=== PATIENT | female | born 1995 | race Caucasian/White ===

== ENCOUNTER 2020-05-08 12:36 | Outpatient (CLI) | payer MEDICAID ==
[~2020-05-08] VITALS: Ht 172.7 cm; Wt 99.1 kg
[2020-05-08 12:38] VITALS: BP 118/79
== END 2020-05-08 13:54 | disposition home or self-care (01) ==
LOC: LDOP 12:36
PROVIDERS: ATTEND Obstetrics & Gynecology
DX: O26.893 Other specified pregnancy related conditions, third trimester (principal); R10.9 Unspecified abdominal pain; Z3A.36 36 weeks gestation of pregnancy
CPT/HCPCS: 59025; 84112

== ENCOUNTER → 2020-05-18 | Outpatient (CLI) | payer MEDICAID | END | disposition home or self-care (01) | LOC: STAR 13:37 | PROVIDERS: ATTEND Obstetrics & Gynecology | DX: Z01.812 Encounter for preprocedural laboratory examination (principal); Z20.828 Contact with and (suspected) exposure to other viral communicable diseases | CPT/HCPCS: 36415; 87635 ==

== ENCOUNTER 2020-05-23 00:35 | Inpatient (IN) | payer MEDICAID ==
[~2020-05-23] VITALS: Ht 172.7 cm; Wt 99.0 kg
[2020-05-23] MEDS ORDERED: METOCLOPRAMIDE 5 MG/ML, 2ML IV ONE (05:30)
[2020-05-23] MEDS ORDERED: SODIUM CITRATE/CITRIC ACID 30 ML UDC PO ONE (05:30)
[2020-05-23] MEDS ORDERED: LACTATED RINGERS 1,000 ML IV SCH (05:30)
[2020-05-23] MEDS ORDERED: LACTATED RINGERS 1,000 ML IVBOLUS ONE (05:30)
[2020-05-23 05:38] VITALS: BP 111/73
[2020-05-23] MEDS ORDERED: PREN1TAB62 PO (05:40)
[2020-05-23] MEDS ORDERED: NEWBORN KIT ONE (05:41)
[2020-05-23] MEDS ORDERED: METOCLOPRAMIDE 5 MG/ML, 2ML ONE (05:50)
[2020-05-23] MEDS ORDERED: OXYTOCIN 30U/ 0.9% NaCL 500ML 500 ML ONE (05:50)
[2020-05-23 05:55] LABS: BASOPHILS % (AUTO) 0 % (0-1); EOSINOPHILS % (AUTO) 1 % (1-7); LYMPHOCYTES % (AUTO) 29 % (22-44); MEAN CORPUSCULAR HEMOGLOBIN 30.4 pg (27.0-34.8); MEAN CORPUSCULAR HGB CONC 33.3 g/dL (32.4-35.8); MEAN PLATELET VOLUME 9.6 fL (7.4-10.4); MONOCYTES % (AUTO) 9 % (2-9); NEUTROPHILS % (AUTO) 61 % (42-75); PLATELET COUNT 206 x10^3/uL (130-400); RED BLOOD COUNT 3.92 x10^6/uL (3.82-5.3); RED CELL DISTRIBUTION WIDTH 13.2 % (9.6-15.2)
[2020-05-23 06:10] LABS: MD NO
[2020-05-23] MEDS ORDERED: PHENYLEPHRINE 10 MG/ML ONE (07:17)
[2020-05-23] MEDS ORDERED: OXYTOCIN 10 UNITS/ML, 1ML ONE (07:17)
[2020-05-23] MEDS ORDERED: EPHEDRINE 50 MG/ML, 1ML ONE ×2 (07:17→08:03)
[2020-05-23] MEDS ORDERED: CEFAZOLIN 1,000 MG ONE (07:17)
[2020-05-23] MEDS ORDERED: FENTANYL PF 100 MCG/2ML ONE (07:17)
[2020-05-23] MEDS ORDERED: DEXAMETHASONE 4 MG/ML, 1ML ONE (07:17)
[2020-05-23] MEDS ORDERED: ONDANSETRON 2MG/ML, 2ML ONE (07:17)
[2020-05-23] MEDS ORDERED: KETOROLAC 30 MG/1 ML ONE (07:17)
[2020-05-23] MEDS ORDERED: EPHEDRINE 50 MG/ML, 1ML IVPush PRN (07:30)
[2020-05-23] MEDS ORDERED: hydrALAzine 20 MG/ML, 1ML IV PRN (07:30)
[2020-05-23] MEDS ORDERED: FENTANYL PF 100 MCG/2ML IV PRN (07:30)
[2020-05-23] MEDS ORDERED: OXYcodone 5 MG/5 ML ORAL.SOL UDC PO PRN (07:30)
[2020-05-23] MEDS ORDERED: HYDROmorphone 2 MG/ML, 1ML IVPush PRN (07:30)
[2020-05-23] MEDS ORDERED: HYDROcodone/APAP 7.5-325MG/15ML UDC PO PRN (07:30)
[2020-05-23] MEDS ORDERED: ONDANSETRON 2MG/ML, 2ML IVPush PRN (07:30)
[2020-05-23] MEDS ORDERED: PROMETHAZINE 25 MG/ML, 1ML IV PRN (07:30)
[2020-05-23] MEDS ORDERED: MIDAZOLAM 1 MG/ML, 2ML IV PRN (07:30)
[2020-05-23] MEDS ORDERED: ALBUTEROL SULFATE 2.5 MG/3 ML NPPB PRN (07:30)
[2020-05-23] MEDS ORDERED: MEPERIDINE/PF 25MG/0.5ML IVPush PRN (07:30)
[2020-05-23] MEDS ORDERED: LABETALOL 5MG/ML, 20ML IV PRN (07:30)
[2020-05-23] MEDS ORDERED: HYDROmorphone 2 MG/ML, 1ML ONE (08:18)
[2020-05-23] MEDS ORDERED: DIPH,PERTUSS(ACELL),TET VAC/PF NC IM-VACC PRN (10:00)
[2020-05-23] MEDS ORDERED: MISOPROSTOL 200 MCG TABLET PR PRN (10:00)
[2020-05-23] MEDS: LACTATED RINGERS 1,000 ML IV SCH ×4 (10:00→20:00)
[2020-05-23] MEDS ORDERED: OXYcodone/APAP 5/325MG TABLET PO PRN (10:00)
[2020-05-23] MEDS: OXYTOCIN 30U/ 0.9% NaCL 500ML 500 ML IV SCH ×2 (10:35→20:00)
[2020-05-23 11:34] VITALS: BP 107/70
[2020-05-23] MEDS: OXYcodone/APAP 5/325MG TABLET PO PRN ×3 (12:18→21:01)
[2020-05-23] MEDS: SIMETHICONE 80 MG CHEW TAB PO PRN ×2 (14:42→21:00)
[2020-05-23] MEDS: IBUPROFEN 600 MG TABLET PO PRN ×2 (14:42→21:00)
[2020-05-23 14:47] VITALS: BP 100/62
[2020-05-23 16:17] LABS: BASOPHILS % (AUTO) 0 % (0-1); EOSINOPHILS % (AUTO) 0 % (1-7); LYMPHOCYTES % (AUTO) 8 % (22-44); MEAN CORPUSCULAR HEMOGLOBIN 30.8 pg (27.0-34.8); MEAN CORPUSCULAR HGB CONC 33.4 g/dL (32.4-35.8); MEAN PLATELET VOLUME 9.6 fL (7.4-10.4); MONOCYTES % (AUTO) 6 % (2-9); NEUTROPHILS % (AUTO) 86 % (42-75); PLATELET COUNT 168 x10^3/uL (130-400); RED BLOOD COUNT 3.28 x10^6/uL (3.82-5.3); RED CELL DISTRIBUTION WIDTH 13.2 % (9.6-15.2)
[2020-05-23] MEDS ORDERED: MORPHINE SULFATE 4 MG/ML, 1ML ONE (16:44)
[2020-05-23 16:59] LABS: MD SCAN
[2020-05-23] MEDS ORDERED: MORPHINE SULFATE 4 MG/ML, 1ML IVPush PRN ×2 (17:00→17:30)
[2020-05-23 20:15] VITALS: BP 106/71
[2020-05-23] MEDS: DOCUSATE 100 MG CAPSULE PO PRN (21:00)
[2020-05-24 00:30] VITALS: BP 104/68
[2020-05-24] MEDS: OXYcodone/APAP 5/325MG TABLET PO PRN ×5 (01:06→23:30)
[2020-05-24] MEDS: LACTATED RINGERS 1,000 ML IV SCH ×2 (02:00→06:00)
[2020-05-24 04:45] VITALS: BP 102/65
[2020-05-24] MEDS: SIMETHICONE 80 MG CHEW TAB PO PRN ×2 (05:35→10:28)
[2020-05-24] MEDS: IBUPROFEN 600 MG TABLET PO PRN ×3 (05:35→23:30)
[2020-05-24] MEDS: OXYTOCIN 30U/ 0.9% NaCL 500ML 500 ML IV SCH (06:00)
[2020-05-24 07:45] VITALS: BP 97/64
[2020-05-24] MEDS: PRENATAL VIT/IRON/FA 1 EACH TABLET PO SCH (10:28)
[2020-05-24] MEDS: DOCUSATE 100 MG CAPSULE PO PRN ×2 (10:28→23:30)
[2020-05-24 20:00] VITALS: BP 104/71
[2020-05-25 07:00] VITALS: BP 108/70
[2020-05-25] MEDS: PRENATAL VIT/IRON/FA 1 EACH TABLET PO SCH (08:42)
[2020-05-25] MEDS: DOCUSATE 100 MG CAPSULE PO PRN (08:42)
[2020-05-25] MEDS: IBUPROFEN 600 MG TABLET PO PRN ×2 (08:43→14:15)
[2020-05-25] MEDS: OXYcodone/APAP 5/325MG TABLET PO PRN ×2 (08:43→14:17)
[2020-05-25] MEDS ORDERED: IBUP-1223 PO (14:00)
[2020-05-25] MEDS ORDERED: DOCU-131 PO (14:00)
[2020-05-25] MEDS ORDERED: OXYC-302 PO (14:00)
== END 2020-05-25 15:00 | disposition home or self-care (01) | DRG 540 ==
LOC: LDIP 05:28 → 2NW 11:16
PROVIDERS: ADMIT Obstetrics & Gynecology; ATTEND Obstetrics & Gynecology
PROC: 10D00Z1 Extraction of Products of Conception, Low, Open Approach (ICD-10-PCS; principal; 2020-05-23)
PROC: 0UB70ZZ Excision of Bilateral Fallopian Tubes, Open Approach (ICD-10-PCS; 2020-05-23)
DX: O34.211 Maternal care for low transverse scar from previous cesarean delivery (principal); Z30.2 Encounter for sterilization; Z37.0 Single live birth; Z3A.39 39 weeks gestation of pregnancy; Z40.03 Encounter for prophylactic removal of fallopian tube(s)
CPT/HCPCS: 36415; 85025; 86592; 86850; 86900; 88302; 90715; G0378; J0690; J1100; J1170; J1885; J2405; J3010; J2270; J2370; J2590; J2765; J7120